=== PATIENT | female | born 1985 | race African-American/Black ===

== ENCOUNTER 2019-05-29 18:30 | Emergency (ER) | payer SELFPAY ==
[2019-05-29 19:43] LABS: #Basophils 0.1 thou/uL (0.0-0.2); #Eosinphils 0.1 thou/uL (0.0-0.7); #Lymphocytes 2.3 thou/uL (1.20-3.40); #Monocytes 0.5 thou/uL (0.11-0.59); #Neutrophils 3.8 thou/uL (1.40-6.50); %Basophils 1.2 % (0.0-1.0); %Eosinophils 1.1 % (0.0-10.0); %Lymphocytes 34.1 % (21.0-51.0); %Monocytes 7.4 % (0.0-10.0); %Neutrophils 56.2 % (42.0-75.0); Hemoglobin 11.7 g/dL (12.0-16.0); Mean Corpuscular HGB CONC 33.6 g/dL (32.0-36.0); Mean Corpuscular Hemoglobin 31.2 pg (27.0-31.0); Mean Corpuscular Volume 92.8 fL (78.0-98.0); Mean Platelet Volume 7.7 fL (7.4-10.4); Platelet Count 251 thou/uL (130-400); RBC Distribution Width 11.8 % (11.5-14.5); Red Blood Cell (RBC) Count 3.74 mill/uL (4.20-5.40); White Blood Cell (WBC) Count 6.7 thou/uL (4.8-10.8)
[2019-05-29 20:06] LABS: ALT (SGPT) 25 U/L (8-55); AST (SGOT) 25 U/L (5-34); Albumin 4.2 g/dL (3.5-5.0); Alkaline Phosphatase 47 U/L (40-110); Anion Gap 12 mmol/L (10-20); BUN (Urea Nitrogen) 11 mg/dL (7.0-18.7); Bilirubin, Total 0.9 mg/dL (0.2-1.2); Calc. Creatinine Clearance 0 mL/min (70-130); Calcium 8.9 mg/dL (7.8-10.44); Carbon Dioxide 25 mmol/L (22-29); Chloride 108 mmol/L (98-107); Estimated GFR-MDRD 90; Globulin 3.5 g/dL (2.4-3.5); Glucose 89 mg/dL (70-105); Potassium 3.6 mmol/L (3.5-5.1); Protein, Total 7.7 g/dL (6.0-8.3); Sodium 141 mmol/L (136-145)
--- NOTE | 2019-05-29 21:09 | ULT ---
ULTRASOUND TRANSVAGINAL DOPPLER DUPLEX: DATE: 05/29/2019 HISTORY: Status post missed . Heavy vaginal bleeding. Rule out retained products of conception. 33-yea r-old female. TECHNIQUE: endovaginal transducer used to visualize intrapelvic contents with grayscale, color-flow, and spectra l analysis. FINDINGS: Endometrial stripe is approximately 1 cm (10 mm) thick at the fundus. There is no increased vasculari ty within this. 1.5 cm small cystic structures x2 in the right ovary. Bilateral ovaries are normal in size, with demonstration of blood flow. Trace amount of free fluid in the cul-de-sac. IMPRESSION: Nonspecific 10 mm endometrial stripe at fundus.
== END 2019-05-29 21:31 | disposition home or self-care (01) ==
LOC: ERS 18:30
DX: O03.9 Complete or unspecified spontaneous abortion without complication (principal)
CPT/HCPCS: 36415; 76856; 80053; 85025; 88305